=== PATIENT | male | born 1990 | race Caucasian/White ===

== ENCOUNTER 2017-02-08 21:41 | Emergency (ER) | payer OTHER ==
[2017-02-08 23:29] VITALS: BP 115/66
== END 2017-02-08 23:29 | disposition home or self-care (01) ==
LOC: ED 21:41
DX: S29.011A Strain of muscle and tendon of front wall of thorax, initial encounter (principal); X58.XXXA Exposure to other specified factors, initial encounter; Y93.89 Activity, other specified; Y99.8 Other external cause status; Y92.89 Other specified places as the place of occurrence of the external cause

== ENCOUNTER 2017-04-26 02:00 | Emergency (ER) | payer OTHER ==
[2017-04-26 03:05] VITALS: BP 117/65
== END 2017-04-26 03:05 | disposition home or self-care (01) ==
LOC: ED 02:00
DX: S62.102A Fracture of unspecified carpal bone, left wrist, initial encounter for closed fracture (principal); V00.131A Fall from skateboard, initial encounter; Y93.51 Activity, roller skating (inline) and skateboarding; Y99.8 Other external cause status; Y92.89 Other specified places as the place of occurrence of the external cause
CPT/HCPCS: A4570

== ENCOUNTER 2017-05-18 16:50 | Emergency (ER) | payer OTHER ==
[2017-05-18 18:22] VITALS: BP 122/78
== END 2017-05-18 18:24 | disposition home or self-care (01) ==
LOC: ED 16:50
DX: R11.0 Nausea (principal)
CPT/HCPCS: Q0162